=== PATIENT | male | born 1985 | race Caucasian/White ===

== ENCOUNTER 2018-01-21 20:05 | Emergency (ER) | payer MEDICAID, SELFPAY ==
[2018-01-21 20:06] VITALS: BP 141/79; PULSE 98; RESP 16; TEMP 37; O2SAT 98; BMI 40.8
[2018-01-21] MEDS: predniSONE 20 MG Tablet 60 MG PO (22:43)
[2018-01-21] MEDS: Ketorolac 30 MG/ML Syringe IV (22:43)
--- NOTE | 2018-01-21 23:30 | ED.VISSUMM ---
- ER Visit Summary Date of Service: 01/21/18 Chief Complaint: Three-day history of right lower back pain and 1 day history of atraumatic left knee pain with swelling History of Present Illness: The patient is a 32 M who has history of gout presents with atraumatic left knee pain and swelling. Reports pain with movement. He denies paresthesia, anesthesia motors. Does have history of neuropathy. He was a smoker. He denies symptoms of claudication; however, he does report lack of hair lower legs compared to when he was younger. He denies bowel or bladder dysfunction. He denies saddle paresthesia or anesthesia. He denies radicular pain. He denies foot drop. He denies thigh muscle weakness going up or down steps. He prefers to sit for 30 minutes versus standing for 30 minutes. He denies nausea, vomiting, diarrhea or constipation. He denies dysuria, frequency, urgency or hematuria. He does report the back pain is worse with movement. There is no known history of trauma. He is a vacuum truck driver. Physical Examination: Vital signs noted and remarkable for an elevated blood pressure 141/79. BMI is 40.9. HEENT exam is unremarkable. Heart is regular without murmur, gallop or rub. S1 and S2 are normal. Lungs are clear to auscultation with good movement of air bilaterally. Abdomen soft nontender no palpable cell mass abdominal bruit. Straight leg test is negative. Crossover test is negative. DTRs the patella and ankle are 2+ and symmetric. There is no clonus or Babinski sign. EHL is intact. He has normal sensation. DP and PT pulses are palpable and 2+. He has reproducible right lower back pain. The left knee is swollen compared to the right. There is a small effusion. He has pain with passive flexion and extension. There is no erythema, warmth or induration. There is no laxity with varus valgus stress testing. Marina's test and modified Nadine's tests are limited secondary to pain. Test Results: None Emergency Department Course and Treatment: IV Toradol and prednisone 60 mg Treatment Plan: Discharge with NSAID and prednisone since no contraindication Disposition: Discharged to home in stable and improved condition Impression: 1. Right lower back pain without sciatica initial encounter 2. Left knee pain secondary to gout This note was generated with [employer] software. It may contain incorrect words, spelling, and punctuation that were not noted in review of the chart prior to signing ED Disposition - Plan for ED Patient: Disposition: Home or Assisted Living Chief Complaint: Back Instructions: ED Neck Back Pain General Prescriptions: Prednisone [Deltasone] 40 mg PO DAILY #10 tab Naproxen [Naprosyn] 500 mg PO BID #14 tab Referrals: Citlalli Pope [employer] [facility] [Primary Care Provider] - 3-5 Days if not improving
--- NOTE | 2018-01-21 23:34 | ED.DCSUM_ITS ---
- ER Visit Summary Date of Service: 01/21/18 Chief Complaint: Three-day history of right lower back pain and 1 day history of atraumatic left knee pain with swelling History of Present Illness: The patient is a 32 M who has history of gout presents with atraumatic left knee pain and swelling. Reports pain with movement. He denies paresthesia, anesthesia motors. Does have history of neuropathy. He was a smoker. He denies symptoms of claudication; however, he does report lack of hair lower legs compared to when he was younger. He denies bowel or bladder dysfunction. He denies saddle paresthesia or anesthesia. He denies radicular pain. He denies foot drop. He denies thigh muscle weakness going up or down steps. He prefers to sit for 30 minutes versus standing for 30 minutes. He denies nausea, vomiting, diarrhea or constipation. He denies dysuria, frequency, urgency or hematuria. He does report the back pain is worse with movement. There is no known history of trauma. He is a fuel truck driver. Physical Examination: Vital signs noted and remarkable for an elevated blood pressure 141/79. BMI is 40.9. HEENT exam is unremarkable. Heart is regular without murmur, gallop or rub. S1 and S2 are normal. Lungs are clear to auscultation with good movement of air bilaterally. Abdomen soft nontender no palpable cell mass abdominal bruit. Straight leg test is negative. Crossover test is negative. DTRs the patella and ankle are 2+ and symmetric. There is no clonus or Babinski sign. EHL is intact. He has normal sensation. DP and PT pulses are palpable and 2+. He has reproducible right lower back pain. The left knee is swollen compared to the right. There is a small effusion. He has pain with passive flexion and extension. There is no erythema, warmth or induration. There is no laxity with varus valgus stress testing. Marina's test and modified Nadine's tests are limited secondary to pain. Test Results: None Emergency Department Course and Treatment: IV Toradol and prednisone 60 mg Treatment Plan: Discharge with NSAID and prednisone since no contraindication Disposition: Discharged to home in stable and improved condition Impression: 1. Right lower back pain without sciatica initial encounter 2. Left knee pain secondary to gout This note was generated with [employer] software. It may contain incorrect words, spelling, and punctuation that were not noted in review of the chart prior to signing ED Disposition - Plan for ED Patient: Disposition: Home or Assisted Living Chief Complaint: Back Instructions: ED Neck Back Pain General Prescriptions: Prednisone [Deltasone] 40 mg PO DAILY #10 tab Naproxen [Naprosyn] 500 mg PO BID #14 tab Referrals: Citlalli Pope [employer] [Primary Care Provider] - 3-5 Days if not improving
[2018-01-21 23:40] VITALS: BP 132/86; PULSE 88; RESP 16; O2SAT 97
== END 2018-01-21 23:41 | disposition home or self-care (01) ==
PROVIDERS: Emergency Provider Emergency Medicine; Family Provider Nurse Practitioner Family; PCP Nurse Practitioner Family
DX: M54.5 Low back pain (principal); M10.9 Gout, unspecified; R03.0 Elevated blood-pressure reading, without diagnosis of hypertension; E66.9 Obesity, unspecified; Z68.41 Body mass index [BMI] 40.0-44.9, adult; Z87.891 Personal history of nicotine dependence
CPT/HCPCS: 96374; 99284; A4216